=== PATIENT | female | born 1995 | race Caucasian/White ===

== ENCOUNTER 2022-10-17 11:47 | Emergency (ER) | payer OTHER, MEDICAID, SELFPAY ==
[2022-10-17 11:50] VITALS: BP 127/67; PULSE 67; RESP 15; TEMP 36.4; O2SAT 98; BMI 29.0
[2022-10-17] MEDS: PANTOPRAZOLE DR 20 MG TABLET PO (12:55)
[2022-10-17] MEDS: hydrOXYzine pamoate 25 MG CAPSULE PO (12:55)
--- NOTE | 2022-10-17 13:30 | ED_ITS ---
HPI - Female Genitourinary <SLY Eisenberg - Last Filed: 10/17/22 17:52> General Chief complaint: Abdominal Pain Stated complaint: cramping when eating/pregancy test Time Seen by Provider: 10/17/22 12:10 Source: patient Mode of arrival: Ambulatory History of Present Illness HPI Narrative: This is a 27-year-old female who presents to the emergency department with her family with multiple complaints, states that she is been going through a lot of stress, has epigastric pain, occasional pelvic pain, states that she had 2 menses last month both at the beginning of the month and the end of the month, denies vomiting or diarrhea. Denies upper respiratory symptoms. States that she is 7 months and got her menses 4 months ago and has had regular menses since then. Denies abnormal vaginal discharge at this time, states that she had a history of GERD in took Nexium in the past but had to stop taking it due to . She endorses a history of depression. She denies shortness of breath, fever, chills, denies vomiting but endorses nausea and epigastric pain from time to time. Does not use substances, denies changes to her bowels Related Data Home Medications Medication Instructions Recorded Confirmed Nexium PO 07/01/20 07/01/20 Previous Rx's Medication Instructions Recorded omeprazole 20 mg capsule,delayed 20 mg PO DAILY #30 caps 10/17/22 release polyethylene glycol 3350 17 17 g PO DAILY PRN constipation 10/17/22 gram/dose oral powder (Miralax) #238 grams Allergies Allergy/AdvReac Type Severity Reaction Status Date / Time acetaminophen [From Vicodin] Allergy Intermediate Vomiting Verified 10/17/22 11:50 hydrocodone [From Vicodin] Allergy Intermediate Vomiting Verified 10/17/22 11:50 Review of Systems <SLY Eisenberg - Last Filed: 10/17/22 17:52> Review of Systems ROS Unobtainable: All systems reviewed & are unremarkable except as noted in HPI and below Patient History <SLY Eisenberg - Last Filed: 10/17/22 17:52> Medical History (Updated 10/17/22 @ 13:56 by SLY Eisenberg) No active medical problems alcohol intake frequency: holidays/special occasions only Substance Use Type: marijuana Exam <SLY Eisenberg - Last Filed: 10/17/22 17:52> Narrative Exam Narrative: Reviewed vitals signs and nursing notes. General: Pleasant, sitting upright, in no acute distress, well groomed, afebrile HEENT: symmetrical facial expressions, moist mucous membranes, neck is supple CV: regular rate and rhythm, warm extremities Respiratory: normal work of breathing, without tachypnea or hypoxia. GI: abdomen soft, nondistended, no abdominal tenderness to palpation, she complains of GERD and reflux like symptoms, no pelvic tenderness to bilateral ovaries or suprapubic region. MSK: moves all extremities, no weakness, normal tone, ambulatory without deficit Skin: brisk capillary refill, without rash or wound Neuro: clear speech and normal cognition, A&O x3, GCS 15, no focal motor or sensation deficits Initial Vital Signs Initial Vital Signs: Vital Signs Temperature 97.5 F L 10/17/22 11:50 Pulse Rate 67 10/17/22 11:50 Respiratory Rate 15 10/17/22 11:50 Blood Pressure 127/67 10/17/22 11:50 Pulse Oximetry 98 10/17/22 11:50 Oxygen Delivery Method Room Air 10/17/22 11:50 <Higinio Leonard DO - Last Filed: 10/17/22 18:27> Initial Vital Signs Initial Vital Signs: Vital Signs Temperature 97.5 F L 10/17/22 11:50 Pulse Rate 67 10/17/22 11:50 Respiratory Rate 15 10/17/22 11:50 Blood Pressure 127/67 10/17/22 11:50 Pulse Oximetry 98 10/17/22 11:50 Oxygen Delivery Method Room Air 10/17/22 11:50 Course <SLY Eisenberg - Last Filed: 10/17/22 17:52> Orders Ordered: ED Orders 10/17/22 13:02 Consult to BATTERY TEST ENGINEER - Musical Instruments Assembler Stat 10/17/22 13:41 Urine Culture Stat Urine Microscopic Stat Discontinued Medications Hydroxyzine Pamoate (Hydroxyzine Pamoate 25 Mg Capsule) 25 mg PO NOW ONE Stop: 10/17/22 12:45 Last Admin: 10/17/22 12:55 Dose: 25 mg Documented By: JOSE LUIS Pantoprazole Sodium (Pantoprazole Dr 20 Mg Tablet) 20 mg PO NOW ONE Stop: 10/17/22 12:45 Last Admin: 10/17/22 12:55 Dose: 20 mg Documented By: JOSE LUIS Vital Signs Vital signs: Vital Signs - 8 hr 10/17/22 11:50 10/17/22 14:05 Temperature 97.5 F L Pulse Rate 67 64 Respiratory Rate 15 Blood Pressure 127/67 118/65 Pulse Oximetry 98 96 Oxygen Delivery Method Room Air Room Air <Higinio Leonard DO - Last Filed: 10/17/22 18:27> Orders Ordered: ED Orders 10/17/22 13:02 Consult to BATTERY TEST ENGINEER - Musical Instruments Assembler Stat 10/17/22 13:41 Urine Culture Stat Urine Microscopic Stat Discontinued Medications Hydroxyzine Pamoate (Hydroxyzine Pamoate 25 Mg Capsule) 25 mg PO NOW ONE Stop: 10/17/22 12:45 Last Admin: 10/17/22 12:55 Dose: 25 mg Documented By: JOSE LUIS Pantoprazole Sodium (Pantoprazole Dr 20 Mg Tablet) 20 mg PO NOW ONE Stop: 10/17/22 12:45 Last Admin: 10/17/22 12:55 Dose: 20 mg Documented By: JOSE LUIS Vital Signs Vital signs: Vital Signs - 8 hr 10/17/22 11:50 10/17/22 14:05 Temperature 97.5 F L Pulse Rate 67 64 Respiratory Rate 15 Blood Pressure 127/67 118/65 Pulse Oximetry 98 96 Oxygen Delivery Method Room Air Room Air MDM - Female Genitourinary <SLY Eisneberg - Last Filed: 10/17/22 17:52> Lab Data Labs: Lab Results 10/17/22 Range/Units 13:41 Urine RBC 0-1/hpf (0-5/HPF) Urine WBC 0-1/hpf (0-5/HPF) Ur Squamous Epith Cells 10-30 /hpf H (0-5/HPF) Urine Bacteria Occasional (0-1) (None) Ur Culture Indicated? Specimen cultured Point of Care Testing Test Results Negative Urine Dip Bedside Urine Glucose Negative Bedside Urine Bilirubin - Negative Bedside Urine Ketone - Negative Urine Specific [place] 1.025 Bedside Urine Occult Blood - Negative Bedside Urine pH 6.0 Bedside Urine Protein - Negative Bedside Urine Urobilinogen - Negative Bedside Urine Nitrite - Negative Bedside Urine Leukocytes - Negative Esterase MDM Narrative Medical decision making narrative: Chief Complaint: Epigastric pain, constipation Independent historian: Patient Multiple etiologies for patient's symptoms considered including, but not limited to: Ovarian cysts, constipation, acute viral illness, urinary tract infection, bacterial vaginosis, I have independently reviewed the patient's vital signs and nursing notes as well as prior records if available. Discussed obtaining a wet mount but she denies having any abnormal vaginal discharge, UA shows epithelial cells without RBCs, WBCs or bacteria Consultations: Social work met with the patient and her family to provide resources in the community for follow-up. She made a primary care appointment for the patient with Dr. Ivey 10/23. Patient endorses a history of depression, she would benefit from a mood medication as she is going through significant life stressors, is anxious and seems depressed. No suspicion for mild treatment of the children or for homicidal or suicidal intent. She appears to be doing the best that she can. Endorses a history of GERD and used to take Pepcid for this but stop taking due to . I started her on omeprazole 20 mg daily, her UA was contaminated with epithelial cells, I asked her to complete a wet mount at her primary care appointment if she is able. She is afebrile, tolerating p.o., has not had vomiting and is feeling much better at this point. She was given resource information for follow-up and crisis triage. Social considerations that may affect disposition: none Questions are addressed and there is agreement with the plan and for follow-up. I consulted with the ED attending physician Dr. Leonard as needed for higher level of care considerations and they were available for discussion and recommendations regarding plan of care and diagnostic testing. Patient is appropriate for outpatient management. <Higinio Leonard, DO - Last Filed: 10/17/22 18:27> Lab Data Labs: Lab Results 10/17/22 Range/Units 13:41 Urine RBC 0-1/hpf (0-5/HPF) Urine WBC 0-1/hpf (0-5/HPF) Ur Squamous Epith Cells 10-30 /hpf H (0-5/HPF) Urine Bacteria Occasional (0-1) (None) Ur Culture Indicated? Specimen cultured Point of Care Testing Test Results Negative Urine Dip Bedside Urine Glucose Negative Bedside Urine Bilirubin - Negative Bedside Urine Ketone - Negative Urine Specific [place] 1.025 Bedside Urine Occult Blood - Negative Bedside Urine pH 6.0 Bedside Urine Protein - Negative Bedside Urine Urobilinogen - Negative Bedside Urine Nitrite - Negative Bedside Urine Leukocytes - Negative Esterase Discharge Plan Departure Patient Disposition: Home Clinical Impression: test negative, Epigastric abdominal pain Instructions: DI for Epigastric Pain Activity Restrictions/Additional Instructions: *You have been diagnosed with abdominal pain, likely GERD related, please take omeprazole daily for acid and try to keep your stool soft with MiraLax as needed. Please stay hydrated, come back to emergency department for new or worsening symptoms, please follow-up at your doctor's appointment, have them complete a wet mount why UA there, there was some vaginal discharge in the urine but the urine was cultured so we will call if it grows anything that needs treatment with antibiotics. I hope you have a great day and glad that you came in for evaluation. *PCP appt Dr. Ivey 10/23 @ 2:30pm [facility] *What to do: *Please continue to take your regular medications as directed. [x] New medication prescriptions sent to your pharmacy: [ [facility]] [ ] New medication written as a paper prescription [ ] No new medications given *Please call and schedule follow up with your primary care provider in 2-3 days, at least for an update. Let them know you were seen in the Emergency Department for the above problem. We will electronically transmit a record of today's note if your PCP or specialist is in our system. *If you do not have a primary care provider please contact [phone] to establish care with one of the [facility] primary care providers. *Return to the Emergency Department for worsening symptoms, inability to keep liquids down, fever greater than 101F, chills, or other concerning symptom. Prescriptions: New omeprazole 20 mg capsule,delayed release(DR/EC) 20 mg PO DAILY Qty: 30 0RF polyethylene glycol 3350 [Miralax] 17 gram/dose powder 17 g PO DAILY PRN (Reason: constipation) Qty: 238 0RF No Action Nexium PO Referrals: Jey Ivey MD [Physician] - Stand Alone Forms: Patient Portal/API <Higinio Leonard, DO - Last Filed: 10/17/22 18:27> Cosign ED Attending Cosignature Attestation: Dr Leonard Co-Sign Statement: I was available for consultation during this patient's emergency department visit. This chart is signed by myself for administrative purposes only. I did not have direct contact with this patient during this visit. They were seen independently by the APC.
[2022-10-17 14:05] VITALS: BP 118/65; PULSE 64; O2SAT 96
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
[2022-10-17 14:13] LABS: RBC Urine 0-1/HPF (0-5/HPF)
[2022-10-17 14:14] LABS: Bacteria Urine Occasional (0-1); Culture Indicated Urine Specimen Cultured; Squamous Epithelial Cell Urine 10-30 /HPF (0-5/HPF); WBC Urine 0-1/HPF (0-5/HPF)
== END 2022-10-17 14:27 | disposition home or self-care (01) ==
PROVIDERS: Emergency Provider Nurse Practitioner Critical Care Medicine
DX: R10.13 Epigastric pain (principal); Z32.02 Encounter for pregnancy test, result negative
CPT/HCPCS: 81003; 81015; 81025; 87086; 99283

== ENCOUNTER 2022-10-22 11:49 | Emergency (ER) | payer OTHER, MEDICAID, SELFPAY ==
[2022-10-22 11:55] VITALS: BP 106/57; PULSE 63; RESP 18; TEMP 36.9; O2SAT 100; BMI 30.4
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
[2022-10-22] MEDS: ACETAMINOPHEN 325 MG TABLET 975 MG PO (13:21)
[2022-10-22] MEDS: CYCLOBENZAPRINE 10 MG TABLET PO (13:22)
[2022-10-22 14:44] VITALS: BP 109/55; PULSE 65; RESP 16; O2SAT 99
--- NOTE | 2022-10-22 15:35 | ED.BACK ---
HPI - Back Pain/Injury <Gagan Colon PA-C - Last Filed: 10/22/22 19:53> General Chief Complaint: Back Pain/Injury Stated Complaint: says sciatica/pain traveling down lt leg Time Seen by Provider: 10/22/22 12:56 Source: patient History of Present Illness HPI Narrative: 27-year-old female with past medical history sciatica presents to the ED with 1 week of lower back pain, radiating down the left leg. Patient states that she did a lot of heavy lifting with her kids and if you other kids that she was taking care of over the last few days, wore her little in a front pack which stressed her back and exacerbated her back pain. Patient denies numbness, tingling, weakness, urinary difficulties, saddle paresthesias, urinary incontinence, stool incontinence. Patient also expresses intermittent dysuria, requesting a test. Related Data Previous Rx's Medication Instructions Recorded omeprazole 20 mg capsule,delayed 20 mg PO DAILY #30 caps 10/17/22 release polyethylene glycol 3350 17 17 g PO DAILY PRN constipation 10/17/22 gram/dose oral powder (Miralax) #238 grams cyclobenzaprine 10 mg tablet 10 mg PO TID PRN muscle spasm 7 10/22/22 days #21 tabs cyclobenzaprine 10 mg tablet 10 mg PO TID PRN muscle spasm #30 10/23/22 tabs Allergies Allergy/AdvReac Type Severity Reaction Status Date / Time hydrocodone [From Vicodin] Allergy Intermediate Vomiting Verified 10/23/22 15:12 ibuprofen AdvReac Intermediate Nausea Verified 10/23/22 15:12 Review of Systems <Gagan Colon PA-C - Last Filed: 10/22/22 19:53> Review of Systems ROS Unobtainable: All systems reviewed & are unremarkable except as noted in HPI and below Constitutional Constitutional: Denies chills, Denies fatigue, Denies fever(s), Denies frequent falls, Denies lethargy and Denies weakness Eyes Eyes: Denies change in vision, Denies eye discharge, Denies irritation and Denies loss of vision ENT Ears, Nose, Mouth, and Throat: Denies change in voice, Denies dizziness, Denies neck pain, Denies sore throat and Denies throat swelling Cardiovascular Cardiovascular: Denies chest pain, Denies irregular heart rhythm, Denies lightheadedness, Denies palpitations, Denies dyspnea, Denies dyspnea on exertion and Denies orthopnea Respiratory Respiratory: Denies cough, Denies dyspnea, Denies dyspnea on exertion and Denies wheezing Gastrointestinal Gastrointestinal: Denies abdominal pain, Denies change in bowel habits, Denies diarrhea, Denies nausea and Denies vomiting Genitourinary Genitourinary: Denies hematuria, Reports dysuria, Denies flank pain, Denies urinary incontinence and Denies urinary urgency Musculoskeletal Musculoskeletal: Reports back pain, Denies muscle weakness, Denies neck pain, Denies numbness, Reports radiating pain into limb and Denies tingling Integumentary/Breasts Skin/Breast: Denies pruritus, Denies erythema, Denies rash and Denies wounds Neurologic Neurologic: Denies behavioral changes, Denies confusion, Denies dizziness, Denies frequent falls, Denies loss of vision, Denies numbness, Denies tingling and Denies weakness Psychiatric Psychiatric: Denies anxiety, Denies behavioral changes, Denies confusion, Denies depression, Denies homicidal ideation and Denies suicidal ideation Endocrine Endocrine: Denies fatigue, Denies flushing and Denies palpitations Hematologic/Lymphatic Hematologic/Lymphatic: Denies easy bruising Allergic/Immunologic Allergic/Immunologic: Denies urticaria, Denies throat swelling and Denies wheezing Patient History <Gagan Colon PA-C - Last Filed: 10/22/22 19:53> Medical History (Updated 10/23/22 @ 16:02 by Jey Ivey MD) Anxiety Low back pain radiating to left leg No active medical problems Social History Smoking Status: Former smoker Smoking Status: Former smoker alcohol intake frequency: holidays/special occasions only Substance Use Type: marijuana Exam <Gagan Cooln PA-C - Last Filed: 10/22/22 19:53> Narrative Exam Narrative: Const General:?cooperative, healthy appearing and comfortable [facility] Head:?normal to inspection Ears:?hearing grossly normal bilaterally Nose:?external nose normal Face and sinus:?normal facial exam and sinuses nontender Mouth:?oral mucosae normal Throat:?posterior oropharynx normal Eyes General:?appearance normal, both eyes and all related structures Neck Neck:?normal visual inspection and no lymphadenopathy noted Resp Effort & Inspection:?normal respiratory effort Auscultation:?clear to auscultation bilaterally Cardio Rate:?regular rate Rhythm:?regular rhythm Musculoskeletal No midline tenderness to palpation. No paraspinal tenderness to palpation. Strength and sensation is intact. There is full range of motion. Patient is neurovascularly intact. Neuro General:?patient alert, patient awake and patient oriented x3 Initial Vital Signs Initial Vital Signs: Vital Signs Temperature 98.5 F 10/22/22 11:55 Pulse Rate 63 10/22/22 11:55 Respiratory Rate 18 10/22/22 11:55 Blood Pressure 106/57 L 10/22/22 11:55 Pulse Oximetry 100 10/22/22 11:55 Oxygen Delivery Method Room Air 10/22/22 11:55 <Mikael Rodríguez DO - Last Filed: 10/25/22 13:41> Initial Vital Signs Initial Vital Signs: Vital Signs Temperature 98.5 F 10/22/22 11:55 Pulse Rate 63 10/22/22 11:55 Respiratory Rate 18 10/22/22 11:55 Blood Pressure 106/57 L 10/22/22 11:55 Pulse Oximetry 100 10/22/22 11:55 Oxygen Delivery Method Room Air 10/22/22 11:55 Course <Gagan Colon PA-C - Last Filed: 10/22/22 19:53> Orders Ordered: Discontinued Medications Acetaminophen (Acetaminophen 325 Mg Tablet) 975 mg PO NOW ONE Stop: 10/22/22 13:16 Last Admin: 10/22/22 13:21 Dose: 975 mg Documented By: LANDY Cyclobenzaprine HCl (Cyclobenzaprine 10 Mg Tablet) 10 mg PO NOW ONE Stop: 10/22/22 13:16 Last Admin: 10/22/22 13:22 Dose: 10 mg Documented By: LANDY Proparacaine HCl (Proparacaine 0.5% Ophth Mable) 1 drops EYE-LEFT NOW ONE Stop: 10/22/22 13:05 Last Admin: 10/22/22 13:16 Dose: Not Given Documented By: LANDY Vital Signs Vital signs: Vital Signs - 8 hr 10/22/22 11:55 10/22/22 14:44 Temperature 98.5 F Pulse Rate 63 65 Respiratory Rate 18 16 Blood Pressure 106/57 L 109/55 L Pulse Oximetry 100 99 Oxygen Delivery Method Room Air Room Air <Mikael Rodríguez DO - Last Filed: 10/25/22 13:41> Orders Ordered: Discontinued Medications Acetaminophen (Acetaminophen 325 Mg Tablet) 975 mg PO NOW ONE Stop: 10/22/22 13:16 Last Admin: 10/22/22 13:21 Dose: 975 mg Documented By: LANDY Cyclobenzaprine HCl (Cyclobenzaprine 10 Mg Tablet) 10 mg PO NOW ONE Stop: 10/22/22 13:16 Last Admin: 10/22/22 13:22 Dose: 10 mg Documented By: LANDY Proparacaine HCl (Proparacaine 0.5% Ophth Mable) 1 drops EYE-LEFT NOW ONE Stop: 10/22/22 13:05 Last Admin: 10/22/22 13:16 Dose: Not Given Documented By: LANDY Vital Signs Vital signs: Vital Signs - 8 hr 10/22/22 11:55 10/22/22 14:44 Temperature 98.5 F Pulse Rate 63 65 Respiratory Rate 18 16 Blood Pressure 106/57 L 109/55 L Pulse Oximetry 100 99 Oxygen Delivery Method Room Air Room Air MDM - Back Pain/Injury <Gagan Colon PA-C - Last Filed: 10/22/22 19:53> Lab Data Labs: Point of Care Testing Test Results Negative Urine Dip Bedside Urine Glucose Negative Bedside Urine Bilirubin - Negative Bedside Urine Ketone - Negative Urine Specific [place] 1.025 Bedside Urine Occult Blood - Negative Bedside Urine pH 6.0 Bedside Urine Protein - Negative Bedside Urine Urobilinogen - Negative Bedside Urine Nitrite - Negative Bedside Urine Leukocytes - Negative Esterase MDM Narrative Medical decision making narrative: 27-year-old female with past medical history sciatica presents to the ED with 1 week of lower back pain, radiating down the left leg. Physical exam is reassuring, patient's symptoms consistent with musculoskeletal sprain/strain. Patient's symptoms improved with Tylenol and Flexeril. UA was negative for infection, negative for . Discussed findings with patient, discharge patient home on Flexeril. Recommend lidocaine patches and Tylenol in addition to the Flexeril. ED return precautions were discussed with patient. Patient verbalized understanding. Medical records reviewed: Yes <Mikael Rodríguez DO - Last Filed: 10/25/22 13:41> Lab Data Labs: Point of Care Testing Test Results Negative Urine Dip Bedside Urine Glucose Negative Bedside Urine Bilirubin - Negative Bedside Urine Ketone - Negative Urine Specific Moran 1.025 Bedside Urine Occult Blood - Negative Bedside Urine pH 6.0 Bedside Urine Protein - Negative Bedside Urine Urobilinogen - Negative Bedside Urine Nitrite - Negative Bedside Urine Leukocytes - Negative Esterase Discharge Plan Departure Patient Disposition: Home Clinical Impression: Lower back pain Instructions: DI for Back Pain With Sciatica Activity Restrictions/Additional Instructions: You were evaluated in the ED today for lower back pain with sciatica. Your urine was negative for and infections. Your back pain is likely due to your sciatica acting up due to all of the recent child lifting. Your symptoms improved with Flexeril and Tylenol in the ED today. You are being prescribed Flexeril to continue taking at home along with the Tylenol. You may also try the lidocaine patches which are sole under the name of Salonpas in the drug store. Please follow-up with your PCP tomorrow, since you already have a appointment scheduled for further evaluation of the back pain and possible referral to physical therapy. Return to the ED if you experience numbness, tingling, weakness, urinary difficulties. Prescriptions: New cyclobenzaprine 10 mg tablet 10 mg PO TID PRN (Reason: muscle spasm) 7 Days Qty: 21 0RF No Action cyclobenzaprine 10 mg tablet 10 mg PO TID PRN (Reason: muscle spasm) Qty: 30 1RF Rx Instructions: Watch for excessive sedation. This is refill to ED script if needed over time as expected omeprazole 20 mg capsule,delayed release(DR/EC) 20 mg PO DAILY Qty: 30 0RF polyethylene glycol 3350 [Miralax] 17 gram/dose powder 17 g PO DAILY PRN (Reason: constipation) Qty: 238 0RF Referrals: Jey Ivey MD [Primary Care Provider] - Stand Alone Forms: Patient Portal/API <Mikael Rodríguez DO - Last Filed: 10/25/22 13:41> Cosign ED Attending Steffany Attestation: I was immediately available in the department for consultation. Documentation has been reviewed. I agree with assessment and plan.
== END 2022-10-22 14:47 | disposition home or self-care (01) ==
PROVIDERS: Emergency Provider Student in an Organized Health Care Education/Training Program; PCP Pediatrics
DX: M54.50 Low back pain, unspecified (principal)
CPT/HCPCS: 81003; 81025; 99283

== ENCOUNTER 2022-11-11 14:45 | Emergency (ER) | payer OTHER, MEDICAID, SELFPAY ==
[2022-11-11 15:11] VITALS: BP 124/78; PULSE 75; RESP 12; TEMP 36.8; O2SAT 97; BMI 29.0
[2022-11-11] MEDS: MECLIZINE HCL 12.5 MG TABLET 25 MG PO (15:40)
[2022-11-11] MEDS: ONDANSETRON 4 MG ODT SL (15:40)
--- NOTE | 2022-11-11 15:48 | ED.ABDPAIN ---
HPI - Abdominal Pain <SLY Eisenberg - Last Filed: 11/11/22 17:19> General Chief Complaint: Abdominal Pain Stated Complaint: motion sickness, vertigo, fall yesterday Time Seen by Provider: 11/11/22 15:29 Source: patient Mode of arrival: Wheelchair History of Present Illness HPI narrative: This is a 27-year-old female who presents to the emergency department complaining of a fall yesterday in which she broke her glasses and now states that she is had dizziness and vertigo since this. She also presents emergency department complaining of suprapubic pain, pressure, urinary frequency and urgency. She also endorses some vaginal discharge that is abnormal. She denies any upper abdominal pain, denies any flank pain, low back pain. She denies any vision changes other than not being able to see very well because she does not have glasses. Endorses nausea with vomiting, denies diarrhea, denies upper respiratory symptoms to include sore throat, cough, congestion. She would like to talk to social work as she has concerns about housing with her small children. Related Data Previous Rx's Medication Instructions Recorded omeprazole 20 mg capsule,delayed 20 mg PO DAILY #30 caps 10/17/22 release polyethylene glycol 3350 17 17 g PO DAILY PRN constipation 10/17/22 gram/dose oral powder (Miralax) #238 grams cyclobenzaprine 10 mg tablet 10 mg PO TID PRN muscle spasm #30 10/23/22 tabs meclizine 25 mg tablet 25 mg PO BID PRN dizziness #14 tabs 11/11/22 ondansetron HCl 4 mg tablet 4 mg PO Q8H PRN nausea and 11/11/22 vomiting #10 tabs phenazopyridine 100 mg tablet 100 mg PO QPC PRN bladder pain #7 11/11/22 (Pyridium) tabs Allergies Allergy/AdvReac Type Severity Reaction Status Date / Time hydrocodone [From Vicodin] Allergy Intermediate Vomiting Verified 10/23/22 15:12 ibuprofen AdvReac Intermediate Nausea Verified 10/23/22 15:12 Review of Systems <SLY Eisenberg - Last Filed: 11/11/22 17:19> Review of Systems ROS Unobtainable: All systems reviewed & are unremarkable except as noted in HPI and below Patient History <SLY Eisenberg - Last Filed: 11/11/22 17:19> Medical History Anxiety Low back pain radiating to left leg No active medical problems Social History Smoking Status: Former smoker Smoking Status: Former smoker alcohol intake frequency: holidays/special occasions only Substance Use Type: marijuana Exam <SLY Eisenberg - Last Filed: 11/11/22 17:19> Narrative Exam Narrative: Reviewed vitals signs and nursing notes. General: Pleasant, sitting upright, in no acute distress, well groomed, afebrile HEENT: symmetrical facial expressions, moist mucous membranes, neck is supple CV: regular rate and rhythm, warm extremities Respiratory: normal work of breathing, without tachypnea or hypoxia. GI: abdomen soft, nondistended, without CVA tenderness bilaterally, suprapubic tenderness to palpation, mild tenderness over the left ovary MSK: moves all extremities, no weakness, normal tone, ambulatory without deficit Skin: brisk capillary refill, without rash or wound Neuro: clear speech and normal cognition, A&O x3, GCS 15, no focal motor or sensation deficits Initial Vital Signs Initial Vital Signs: Vital Signs Temperature 98.2 F 11/11/22 15:11 Pulse Rate 75 11/11/22 15:11 Respiratory Rate 12 11/11/22 15:11 Blood Pressure 124/78 11/11/22 15:11 Pulse Oximetry 97 11/11/22 15:11 Oxygen Delivery Method Room Air 11/11/22 15:11 <Mikael Rodríguez DO - Last Filed: 11/17/22 01:49> Initial Vital Signs Initial Vital Signs: Vital Signs Temperature 98.2 F 11/11/22 15:11 Pulse Rate 75 11/11/22 15:11 Respiratory Rate 12 11/11/22 15:11 Blood Pressure 124/78 11/11/22 15:11 Pulse Oximetry 97 11/11/22 15:11 Oxygen Delivery Method Room Air 11/11/22 15:11 Course <SLY Eisenberg - Last Filed: 11/11/22 17:19> Orders Ordered: Discontinued Medications Cephalexin HCl (Cephalexin 250 Mg Capsule) 500 mg PO NOW ONE Stop: 11/11/22 17:16 Last Admin: 11/11/22 17:24 Dose: 500 mg Documented By: ERNESTO Meclizine HCl (Meclizine Hcl 12.5 Mg Tablet) 25 mg PO NOW ONE Stop: 11/11/22 15:32 Last Admin: 11/11/22 15:40 Dose: 25 mg Documented By: ERNESTO Metronidazole (Metronidazole 500 Mg Tablet) 500 mg PO NOW ONE Stop: 11/11/22 16:53 Last Admin: 11/11/22 17:01 Dose: 500 mg Documented By: ERNESTO Ondansetron HCl (Ondansetron 4 Mg Odt) 4 mg SL NOW ONE Stop: 11/11/22 15:32 Last Admin: 11/11/22 15:40 Dose: 4 mg Documented By: ERNESTO Phenazopyridine HCl (Phenazopyridine 100 Mg Tablet) 100 mg PO NOW ONE Stop: 11/11/22 17:16 Last Admin: 11/11/22 17:29 Dose: Not Given Documented By: ERNESTO Vital Signs Vital signs: Vital Signs - 8 hr 11/11/22 15:11 Temperature 98.2 F Pulse Rate 75 Respiratory Rate 12 Blood Pressure 124/78 Pulse Oximetry 97 Oxygen Delivery Method Room Air <Mikael Rodríguez DO - Last Filed: 11/17/22 01:49> Orders Ordered: Discontinued Medications Cephalexin HCl (Cephalexin 250 Mg Capsule) 500 mg PO NOW ONE Stop: 11/11/22 17:16 Last Admin: 11/11/22 17:24 Dose: 500 mg Documented By: ERNESTO Meclizine HCl (Meclizine Hcl 12.5 Mg Tablet) 25 mg PO NOW ONE Stop: 11/11/22 15:32 Last Admin: 11/11/22 15:40 Dose: 25 mg Documented By: ERNESTO Metronidazole (Metronidazole 500 Mg Tablet) 500 mg PO NOW ONE Stop: 11/11/22 16:53 Last Admin: 11/11/22 17:01 Dose: 500 mg Documented By: ERNESTO Ondansetron HCl (Ondansetron 4 Mg Odt) 4 mg SL NOW ONE Stop: 11/11/22 15:32 Last Admin: 11/11/22 15:40 Dose: 4 mg Documented By: ERNESTO Phenazopyridine HCl (Phenazopyridine 100 Mg Tablet) 100 mg PO NOW ONE Stop: 11/11/22 17:16 Last Admin: 11/11/22 17:29 Dose: Not Given Documented By: ERNESTO Vital Signs Vital signs: Vital Signs - 8 hr 11/11/22 15:11 Temperature 98.2 F Pulse Rate 75 Respiratory Rate 12 Blood Pressure 124/78 Pulse Oximetry 97 Oxygen Delivery Method Room Air [facility] - Abdominal Pain <SOFIYA EisenbergP - Last Filed: 11/11/22 17:19> Lab Data Labs: Lab Results 11/11/22 Range/Units 16:17 Urine RBC 0-1/hpf (0-5/HPF) Urine WBC 1-5/hpf (0-5/HPF) Ur Squamous Epith Cells 5-10 /hpf H (0-5/HPF) Urine Bacteria Few (2-10) H (None) Ur Culture Indicated? Cult not indicated Point of care testing: Point of Care Testing Test Results Negative Urine Dip Bedside Urine Glucose Negative Bedside Urine Bilirubin - Negative Bedside Urine Ketone - Negative Urine Specific [place] 1.020 Bedside Urine Occult Blood - Negative Bedside Urine pH 6.0 Bedside Urine Protein - Negative Bedside Urine Urobilinogen - Negative Bedside Urine Nitrite - Negative Bedside Urine Leukocytes - Negative Esterase ECG Data Interpretation: EKG independently reviewed by myself at [1519] reveals normal sinus rhythm at [68] bpm with regular axis and intervals. No STEMI, ST segment changes, arrhythmia, or acute ischemic changes. MDM Narrative Medical decision making narrative: Chief Complaint: Suprapubic pressure, dizziness Primary historian: patient Multiple etiologies for patient's complaint considered including, but not limited to: Urinary tract infection, vaginitis, pyelonephritis, constipation, dehydration, I have independently reviewed the patient's vital signs and nursing notes as well as prior records if available. Course of care: Patient broke her glasses during her fall and complains of dizziness related to not being able to see because her vision is so bad. She has suprapubic tenderness to palpation, reports urinary urgency and some vaginal discharge. Patient's UA came back positive for 1-5 wbc's, 5-10 squamous epithelial cells with few bacteria, wet mount is negative for clue cells, WBCs present, will treat for UTI for 07/05/2009 bacteria, suprapubic tenderness to palpation, and feeling unwell today. Patient was given cephalexin, Pyridium for her symptoms with oral Toradol. She feels better, is p.o. tolerant, Zofran is helpful, she is given a prescription of Zofran as well for home. Fragment to follow up with primary care as needed and return to the emergency department for new or worsening symptoms. Her test was negative today. Social work referral was placed due to concern about home insecurity. Social considerations that may affect disposition: none Questions are addressed and there is agreement with the plan and for follow-up. I consulted with the ED attending physician Dr. Rodríguez as needed for higher level of care considerations and they were available for discussion and recommendations regarding plan of care and diagnostic testing. Patient is appropriate for outpatient management. <Mikael Rodríguez, DO - Last Filed: 11/17/22 01:49> Lab Data Labs: Lab Results 11/11/22 Range/Units 16:17 Urine RBC 0-1/hpf (0-5/HPF) Urine WBC 1-5/hpf (0-5/HPF) Ur Squamous Epith Cells 5-10 /hpf H (0-5/HPF) Urine Bacteria Few (2-10) H (None) Ur Culture Indicated? Cult not indicated Point of care testing: Point of Care Testing Test Results Negative Urine Dip Bedside Urine Glucose Negative Bedside Urine Bilirubin - Negative Bedside Urine Ketone - Negative Urine Specific [place] 1.020 Bedside Urine Occult Blood - Negative Bedside Urine pH 6.0 Bedside Urine Protein - Negative Bedside Urine Urobilinogen - Negative Bedside Urine Nitrite - Negative Bedside Urine Leukocytes - Negative Esterase Discharge Plan Departure Patient Disposition: Home Clinical Impression: test negative Urinary tract infection Qualifiers: Urinary tract infection type: acute cystitis Instructions: DI for Urinary Tract Infection (UTI) Activity Restrictions/Additional Instructions: *You have been diagnosed with a urinary tract infection which is likely responsible for a lot of your symptoms. I hope you start feeling better soon, giving you an antibiotic and Pyridium to help treat the pain of your bladder. Your test was negative, please stay hydrated follow-up primary care as needed, I placed a referral for social work for you, they may call you back tomorrow since they are not here today. Please use meclizine as needed for dizziness and follow-up with an broom handle dipper get glasses ordered SUN[place]. Use Zofran as needed for nausea vomiting, Pyridium every 8 hours as needed for bladder pain and please finish the antibiotic, 4 times a day for the next 5 days.. We wish you the best, please return for worsening symptoms, fever or vomiting.. *What to do: *Please continue to take your regular medications as directed. [ x] New medication prescriptions sent to your pharmacy: [facility]] [ ] New medication written as a paper prescription [ ] No new medications given *Please call and schedule follow up with your primary care provider in 2-3 days, at least for an update. Let them know you were seen in the Emergency Department for the above problem. We will electronically transmit a record of today's note if your PCP or specialist is in our system. *If you do not have a primary care provider please contact [phone] to establish care with one of the [facility] primary care providers. *Return to the Emergency Department for worsening symptoms, inability to keep liquids down, fever greater than 101F, chills, or other concerning symptom. Prescriptions: New phenazopyridine [Pyridium] 100 mg tablet 100 mg PO QPC PRN (Reason: bladder pain) Qty: 7 0RF ondansetron HCl 4 mg tablet 4 mg PO Q8H PRN (Reason: nausea and vomiting) Qty: 10 0RF meclizine 25 mg tablet 25 mg PO BID PRN (Reason: dizziness) Qty: 14 0RF No Action cyclobenzaprine 10 mg tablet 10 mg PO TID PRN (Reason: muscle spasm) Qty: 30 1RF Rx Instructions: Watch for excessive sedation. This is refill to ED script if needed over time as expected omeprazole 20 mg capsule,delayed release(DR/EC) 20 mg PO DAILY Qty: 30 0RF polyethylene glycol 3350 [Miralax] 17 gram/dose powder 17 g PO DAILY PRN (Reason: constipation) Qty: 238 0RF Referrals: Jey Ivey MD [Primary Care Provider] - Stand Alone Forms: Patient Portal/API <Mikael Rodríguez DO - Last Filed: 11/17/22 01:49> Cosign ED Attending Steffany Attestation: I was immediately available in the department for consultation. Documentation has been reviewed. I agree with assessment and plan.
[2022-11-11 16:47] LABS: Bacteria Urine Few (2-10); Culture Indicated Urine Cult Not Indicated; RBC Urine 0-1/HPF (0-5/HPF); Squamous Epithelial Cell Urine 5-10 /HPF (0-5/HPF); WBC Urine 1-5/HPF (0-5/HPF)
[2022-11-11] MEDS: metroNIDAZOLE 500 MG TABLET PO (17:01)
[2022-11-11] MEDS: cephALEXin 250 MG CAPSULE 500 MG PO (17:24)
[2022-11-11 17:30] VITALS: PULSE 70; RESP 18; O2SAT 100
--- NOTE | 2022-11-11 17:32 | PC.NURSE ---
Upon discharge out of department made statement i guess the social service liaison didn't want to see us This writter, address husbands concern. Informed them that we did not have a social service liaison on duty at this time. A facesheet was placed in FLAT FOLDING MACHINE OPERATOR box for follow up.
--- NOTE | 2022-11-12 13:28 | CM.SWNOTE ---
SERVICE DESK SPECIALIST follow up Note SERVICE DESK SPECIALIST calls phone number for patient which is also phone number for patient's fiance. Patient's fiance answers call and reports that patient is at work and discusses concerns with family in need of emergent housing. He states that all of the family shelters are full for the next few months. SERVICE DESK SPECIALIST encourages fiance to contact [facility] for emergent motel voucher. MERLY NySW
== END 2022-11-11 17:32 | disposition home or self-care (01) ==
PROVIDERS: Emergency Provider Nurse Practitioner Critical Care Medicine; PCP Pediatrics
DX: R42 Dizziness and giddiness (principal); N30.00 Acute cystitis without hematuria
CPT/HCPCS: 81003; 81015; 81025; 87210; 93005; 99283

== ENCOUNTER 2022-12-15 10:58 | Emergency (ER) | payer OTHER, MEDICAID, SELFPAY ==
[2022-12-15] VITALS (15 sets, daily range): BP systolic 105–127; BP diastolic 55–62; PULSE 60–78; RESP 15–27; TEMP 36.8; O2SAT 97–100; BMI 30.6
[2022-12-15] MEDS: ONDANSETRON 4 MG/2 ML INJ IV (11:25)
--- NOTE | 2022-12-15 11:33 | ED_ITS ---
HPI - Nausea/Vomiting/Diarrhea General Chief complaint: Nausea/Vomiting/Diarrhea Stated complaint: cough, n/v, period heavier then normal Time Seen by Provider: 12/15/22 11:33 Source: patient and family Mode of arrival: Ambulatory History of Present Illness HPI Narrative: This is a 27-year-old female with history of migraines, prior x2 who presents with complaint of vaginal bleeding that started in the last day or so, she noted large clots, going through a pad about an hour every other hour. She states she had her period about 3 weeks ago so was not expecting to have her menses for about another week. She is had a little bit of lower pelvic cramping. She denies any lightheadedness or passing out. She has had a headac he intermittently for the past month and states she is been getting migraine since she lost her glasses a month ago. She states today it is a little bit worse she does sometimes get nausea and vomiting with that and she is having some today. She denies any chest pain or shortness of breath. She is had some nausea and vomiting. She states she is been constipated she is not had any diarrhea. No dysuria urgency or frequency. She notes a little bit of whitish discharge with her vaginal bleeding. She is sexually active. Patient also notes that she is had some loss of taste she is had a lot of nasal congestion with green drainage from her nose and that she is coughing up green drainage. S he denies any pleuritic chest pain. Patient states she is supposed to be on Prilosec but ran out. She is had C-sections x2. States allergic to Vicodin. States ibuprofen can make her nauseated but she tolerates IV Toradol without issue. She denies tobacco, alcohol or illicit other than occasional CBD. Her prior care was at [facility] in [place]. Dr. Ivey is her PCP. Related Data Previous Rx's Medication Instructions Recorded omeprazole 20 mg capsule,delayed 20 mg PO DAILY #30 caps 10/17/22 release polyethylene glycol 3350 17 17 g PO DAILY PRN constipation 10/17/22 gram/dose oral powder (Miralax) #238 grams cyclobenzaprine 10 mg tablet 10 mg PO TID PRN muscle spasm #30 10/23/22 tabs meclizine 25 mg tablet 25 mg PO BID PRN dizziness #14 tabs 11/11/22 ondansetron HCl 4 mg tablet 4 mg PO Q8H PRN nausea and 11/11/22 vomiting #10 tabs phenazopyridine 100 mg tablet 100 mg PO QPC PRN bladder pain #7 11/11/22 (Pyridium) tabs ondansetron 4 mg disintegrating 4 mg PO QID PRN nausea and 12/15/22 tablet vomiting #10 tabs Allergies Allergy/AdvReac Type Severity Reaction Status Date / Time hydrocodone [From Vicodin] Allergy Intermediate Vomiting Verified 10/23/22 15:12 ibuprofen AdvReac Intermediate Nausea Verified 10/23/22 15:12 Review of Systems Review of Systems ROS Unobtainable: All systems reviewed & are unremarkable except as noted in HPI and below Patient History Medical History ADHD Anxiety Asthma Low back pain radiating to left leg No active medical problems Family History Grandmother Cancer Stroke Grandfather Cancer Diabetes mellitus Hypertension Social History Smoking Status: Former smoker Smoking Status: Former smoker alcohol intake frequency: holidays/special occasions only Substance Use Type: marijuana Exam Narrative Exam Narrative: GEN: well nourished, well appearing female, alert and oriented x 3, patient appears to be in mild distress. HEENT: Atraumatic, pupils are equal round reactive to light, extraocular movements are intact, positive for nasal congestion, TMs are clear with no fluid , there is no conjunctival pallor. Throat is clear without any exudates, erythema, tonsillar enlargement or uvular deviation HEART: Regular rate and rhythm without murmur, clicks, rubs. LUNGS:Lungs clear to auscultation, no wheezes, rales, crackles, chest moves symmetrically ABD:bowel sounds normal, soft, mild suprapubic tenderness, no guarding, rebound, rigidity, no masses noted, no hepatosplenomegaly :No CVA tenderness MSCL: Non-tender, no muscle atrophy, muscles strength 5/5 upper and lower extremities, full range of motion, normal gait NEURO:CN 2-12 intact, sensation normal. SKIN: No rash, erythema or other skin changes Initial Vital Signs Initial Vital Signs: Vital Signs Pulse Rate 61 12/15/22 11:03 Pulse Oximetry 97 12/15/22 11:03 Course Orders Ordered: ED Orders 12/15/22 11:30 CMP [Comprehensive Metabolic Panel] Stat Complete Blood Count AUTO DIFF Stat Lipase Stat 12/15/22 11:40 Covid-19 + FLU A/B + RSV - PCR Stat 12/15/22 12:39 Genital Culture Stat Wet Prep Tric BV Joellen Stat Discontinued Medications Sodium Chloride (Normal Saline 0.9%) 1,000 mls @ 1,000 mls/hr IV BOLUS ONE Stop: 12/15/22 12:52 Last Infusion: 12/15/22 13:26 Dose: 0 mls/hr Documented By: Admin: 12/15/22 12:05 Dose: 1,000 mls/hr Documented By: DUNCAN Ketorolac Tromethamine (Ketorolac 30 Mg/Ml Vial) 15 mg IV NOW ONE Stop: 12/15/22 11:54 Last Admin: 12/15/22 12:04 Dose: 15 mg Documented By: DUNCAN Ondansetron HCl (Ondansetron 4 Mg Odt) 4 mg SL NOW PRN PRN Reason: Nausea And Vomiting Ondansetron HCl (Ondansetron 4 Mg/2 Ml Inj) 4 mg IV NOW PRN PRN Reason: Nausea And Vomiting Last Admin: 12/15/22 11:25 Dose: 4 mg Documented By: DUNCAN Vital Signs Vital signs: Vital Signs - 8 hr 12/15/22 11:15 12/15/22 11:15 12/15/22 11:30 Pulse Rate 70 66 Respiratory Rate 20 23 Blood Pressure 110/60 Pulse Oximetry 98 99 12/15/22 11:44 12/15/22 11:44 12/15/22 11:45 Pulse Rate 68 Respiratory Rate 18 Blood Pressure 127/58 L 120/62 Pulse Oximetry 98 12/15/22 11:45 12/15/22 12:00 12/15/22 12:00 Pulse Rate 66 61 Respiratory Rate 15 22 Blood Pressure 106/55 L Pulse Oximetry 99 98 12/15/22 12:15 12/15/22 12:15 12/15/22 12:32 Pulse Rate 66 60 Respiratory Rate Blood Pressure 105/55 L Pulse Oximetry 99 12/15/22 13:00 12/15/22 13:29 12/15/22 13:29 Pulse Rate 76 69 Respiratory Rate 25 H 19 Blood Pressure 111/62 Pulse Oximetry 100 100 12/15/22 13:30 12/15/22 13:30 12/15/22 13:35 Pulse Rate 67 71 Respiratory Rate 27 H Blood Pressure 113/57 L Pulse Oximetry 100 98 12/15/22 13:40 Pulse Rate 78 Respiratory Rate Blood Pressure Pulse Oximetry 99 MDM - Nausea/Vomiting/Diarrhea Lab Data 12/15/22 11:30 12/15/22 11:30 Labs: Lab Results 12/15/22 12/15/22 12/15/22 Range/Units 11:30 11:30 11:40 WBC 8.0 (4.5-11.0) X10^3/uL RBC 4.04 (4.0-5.2) X10^6/uL Hgb 12.4 (12.0-16.0) g/dL Hct 35.8 L (36-46) % MCV 88.6 (80-100) fL MCH 30.6 (26-34) PG MCHC 34.5 (30-36) % RDW 13.1 (11.6-14.8) % Plt Count 215 (150-400) X10^3/uL Neut % (Auto) 59.1 (50-75) % Lymph % (Auto) 32.9 (25-40) % Walker % (Auto) 5.6 (3-14) % Eos % (Auto) 1.5 L (2-4) % Baso % (Auto) 0.9 (0-2) % Neut # (Auto) 4700 (0589-9078) /uL Lymph # (Auto) 2600 (1727-8086) /uL Walker # (Auto) 400 (0-900) /uL Eos # (Auto) 100 (0-450) /uL Baso # (Auto) 100 (0-100) /uL Sodium 141 (137-145) mmol/L Potassium 3.8 (3.4-5.1) mmol/L Chloride 105 (98-107) mmol/L Carbon Dioxide 29 (22-32) mmol/L BUN 17 (7-17) mg/dL Creatinine 0.73 (0.52-1.04) mg/dL Estimated GFR > 60 (>60) mL/min BUN/Creatinine Ratio 23.3 H (6-22) Glucose 91 (70-100) mg/dL Calcium 9.1 (8.4-10.2) mg/dL Total Bilirubin 0.5 (0.2-1.3) mg/dL AST 23 (14-36) IU/L ALT 16 (<35) IU/L Alkaline Phosphatase 81 (38-126) U/L Total Protein 7.3 (6.3-8.2) g/dL Albumin 4.1 (3.5-5.0) g/dL Globulin 3.2 (1.7-4.1) g/dL Albumin/Globulin Ratio 1.3 (1.0-2.8) Lipase 203 (23-300) U/L SARS-CoV-2 (PCR) Negative (Negative) Influenza A (RT-PCR) Flu a negative (NEGATIVE) Influenza B (RT-PCR) Flu b negative (NEGATIVE) RSV (PCR) Negative (Negative) Point of Care Testing Test Results Negative Urine Dip Bedside Urine Glucose Negative Bedside Urine Bilirubin - Negative Bedside Urine Ketone - Negative Urine Specific [place] 1.010 Bedside Urine Occult Blood +++ Bedside Urine pH 7.5 Bedside Urine Protein +/- 15 Bedside Urine Urobilinogen - Negative Bedside Urine Nitrite - Negative Bedside Urine Leukocytes - Negative Esterase MDM Narrative Medical decision making narrative: 27-year-old female with complaint of headaches for the past month she lost her glasses which he normally wears daily. No acute red flag symptoms from this perspective she has obvious nasal congestion, seems to have more upper respiratory symptoms respiratory panel was sent she is also started having some vaginal bleeding heavier than she typically would with a. And she is about week early. test is negative, point of care urine does show blood no other signs of infection. CBC, CMP lipase as she is had some nausea and vomiting but seems more correlated with her headache which she states is typical shows normal CBC, CMP lipase are negative. Patient has had some discharge so plan for genital and wet mount. Discussed pelvic exam patient is comfortable with doing self swab. Patient's appears to likely have upper respiratory infection, so COVID/influenza RSV is negative. Patient's labs are appropriate her vitals she is bradycardic no hypotension she is likely having some irregular vaginal bleeding but feels appropriate for discharge. Would do symptomatic treatment for upper respiratory infection, she is feeling much better after fluids Toradol and Zofran. No more vomiting patient has been able to eat department. Cell swab shows occasional WBC but no other changes, there is genital culture pending and would wait for these results. Discussed findings with patient she feels comfortable returning home, discussed return precautions. Encouraged her also obtain new glasses which will likely help with her headaches. Discharge Plan Departure Patient Disposition: Home Clinical Impression: Upper respiratory infection, Vaginal bleeding, Head ache Instructions: DI for Vaginal Bleeding Activity Restrictions/Additional Instructions: Follow-up if you continued to have abnormal vaginal bleeding or concerning changes. 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 Your genital culture is pending, if this shows signs of infection we will contact you to start treatment. This typically takes 48-72 hours to result. You do appear to have an upper respiratory infection today. You may take Tylenol up to a 1000 mg every 6 hours as needed for headaches or muscle aches. You can take Zofran 1 tablet every 6 hours as needed for nausea. Prescription printed. Please return for rapidly worsening symptoms, increasing chest pain, shortness of breath, severe headaches, persistent fevers, persistent vomiting, increasing vaginal bleeding, bleeding through more than a pad an hour, lightheadedness or passing out or other new or concerning changes. Prescriptions: New ondansetron 4 mg tablet,disintegrating 4 mg PO QID PRN (Reason: nausea and vomiting) Qty: 10 0RF No Action cyclobenzaprine 10 mg tablet 10 mg PO TID PRN (Reason: muscle spasm) Qty: 30 1RF Rx Instructions: Watch for excessive sedation. This is refill to ED script if needed over time as expected omeprazole 20 mg capsule,delayed release(DR/EC) 20 mg PO DAILY Qty: 30 0RF polyethylene glycol 3350 [Miralax] 17 gram/dose powder 17 g PO DAILY PRN (Reason: constipation) Qty: 238 0RF phenazopyridine [Pyridium] 100 mg tablet 100 mg PO QPC PRN (Reason: bladder pain) Qty: 7 0RF ondansetron HCl 4 mg tablet 4 mg PO Q8H PRN (Reason: nausea and vomiting) Qty: 10 0RF meclizine 25 mg tablet 25 mg PO BID PRN (Reason: dizziness) Qty: 14 0RF Referrals: Jey Ivey MD [Primary Care Provider] - Stand Alone Forms: Patient Portal/API, Work Release Note
[2022-12-15 11:44] LABS: Add Manual Diff / Slide Review NO; Basophils Absolute Auto 100 /uL (0-100); Basophils Percent Auto 0.9 % (0-2); Eosinophils Absolute Auto 100 /uL (0-450); Eosinophils Percent Auto 1.5 % (2-4); Hematocrit 35.8 % (36-46); Hemoglobin 12.4 g/dL (12.0-16.0); Lymphocytes Absolute Auto 2600 /uL (1100-4500); Lymphocytes Percent Auto 32.9 % (25-40); Mean Corpuscular HGB Conc 34.5 % (30-36); Mean Corpuscular Hemoglobin 30.6 PG (26-34); Mean Corpuscular Volume 88.6 fL (80-100); Monocytes Absolute Auto 400 /uL (0-900); Monocytes Percent Auto 5.6 % (3-14); Neutrophils Absolute Auto 4700 /uL (1500-7000); Neutrophils Percent Auto 59.1 % (50-75); Platelet Count 215 X10^3/uL (150-400); Red Blood Cell Count 4.04 X10^6/uL (4.0-5.2); Red Cell Distribution Width 13.1 % (11.6-14.8)
[2022-12-15 11:54] LABS: Alanine Aminotransferase 16 IU/L (<35); Albumin 4.1 g/dL (3.5-5.0); Albumin Globulin Ratio 1.3 (1.0-2.8); Alkaline Phosphatase 81 U/L (38-126); Aspartate Aminotransferase 23 IU/L (14-36); BUN Creatinine Ratio 23.3 (6-22); Bilirubin Total 0.5 mg/dL (0.2-1.3); Blood Urea Nitrogen 17 mg/dL (7-17); Calcium 9.1 mg/dL (8.4-10.2); Carbon Dioxide 29 mmol/L (22-32); Chloride 105 mmol/L (98-107); Estimated Glomerular Filt Rate > 60 mL/min (>60); Globulin 3.2 g/dL (1.7-4.1); Glucose 91 mg/dL (70-100); HEMOLYSIS < 15 (0-50); Lipase 203 U/L (23-300); Potassium 3.8 mmol/L (3.4-5.1); Sodium 141 mmol/L (137-145); Total Protein 7.3 g/dL (6.3-8.2)
[2022-12-15] MEDS: KETOROLAC 30 MG/ML VIAL 15 MG IV (12:04)
[2022-12-15] MEDS: SODIUM CHLORIDE 0.9% 1,000 ML 1000 ML IV (12:05)
[2022-12-15 12:28] LABS: COVID-19 CEPHEID 4-PLEX PCR Negative (Negative); Influenza A - CEPHEID Flu A NEGATIVE (NEGATIVE); Influenza B - CEPHEID Flu B NEGATIVE (NEGATIVE); Respiratory Syncytial Virus Negative (Negative)
== END 2022-12-15 13:55 | disposition home or self-care (01) ==
PROVIDERS: Emergency Provider Emergency Medicine; PCP Pediatrics
DX: J06.9 Acute upper respiratory infection, unspecified (principal); N93.9 Abnormal uterine and vaginal bleeding, unspecified; R10.2 Pelvic and perineal pain; R51.9 Headache, unspecified; Z20.822 Contact with and (suspected) exposure to COVID-19
CPT/HCPCS: 0241U; 36415; 80053; 81003; 81025; 83690; 85025; 87070; 87205; 87210; 96361; 96374; 96375; 99284; J1885; J2405

== ENCOUNTER → 2023-01-02 10:23 | Outpatient (CLI) | payer OTHER, MEDICAID, SELFPAY ==
--- NOTE | 2023-01-02 10:25 | DI.US.S_ITS ---
PROCEDURE: US PELVIC COMPLETE INDICATIONS: abnormal vaginal bleeding and RUQ pain TECHNIQUE: Real-time scanning was performed of the pelvic organs, with image documentation. Additional endovaginal scanning was necessary due to incomplete visualization of the adnexal and endometrial structures by transabdominal scanning. COMPARISON: None. FINDINGS: Uterus: Uterus is retroverted and normal in size at 6.8 x 3.9 x 5.7 cm. The myometrium is homogeneous. The endometrium measures 17 mm mm combined thickness. Endometrial hyperplasia. No endometrial masses are seen. Ovaries: The right ovary measures 4.5 x 2.9 x 4.2 cm, with a calculated ovarian volume of 29 cc. The left ovary measures 3.4 x 2.3 x 2.6 cm, with a calculated ovarian volume of 11 cc. The ovaries have a normal sonographic appearance. Greater than 12 follicles can be seen in the left ovary. Dominant follicle within the right ovary measuring 1.6 cm No adnexal masses are seen. Other: No pathologic free abdominal or pelvic fluid. IMPRESSION: The endometrium measures 17 mm. No endometrial masses are seen. Given history of abnormal vaginal bleeding, follow-up ultrasound or endometrial sampling may be of value if clinically indicated. The left ovary demonstrates 12 or more follicles. A finding which can be seen with polycystic ovarian syndrome. In the absence of ovulatory dysfunction or clinically/biochemically diagnosed hyperandrogenism, findings are non specific and do not indicate the presence of polycystic ovarian syndrome. We strive to produce accurate, complete, and clear reports of imaging services. To assist us in improving patient care, this report was composed using standard report templates and voice recognition software. Therefore, it may contain abnormal punctuation, insertions and/or omissions. Occasional wrong-word or sound-alike substitutions may occur. Though we review the report and make efforts to correct it, we do recommend that the report be read carefully in proper context to recognize any text inaccuracies. Dictated by: Bentley Adrian M.D. on 01/02/2023 at 12:32 Approved by: Bentley Adrian M.D. on 01/02/2023 at 12:38
--- NOTE | 2023-01-02 10:25 | DI.US.S_ITS ---
PROCEDURE: US ABDOMEN LIMITED INDICATIONS: abnormal vaginal bleeding and RUQ pain TECHNIQUE: Real-time focused scanning was performed of the abdomen, with image documentation. COMPARISON: None. FINDINGS: The liver is increased in echogenicity, consistent with fatty infiltration. The liver is mildly enlarged at 17.4 cm. Mobile gallstone measuring 1.2 cm within the gallbladder. No gallbladder wall thickening or pericholecystic fluid. The biliary tree is within normal limits. The common bile duct measures 5 mm. The visualized portions of the pancreas are within normal limits. IMPRESSION: Increased hepatic echogenicity noted possibly related to hepatic steatosis but other sources of hepatocellular disease or hepatic cirrhosis cannot be excluded. Recommend clinical correlation. Mild hepatomegaly. Cholelithiasis without evidence of acute cholecystitis. Dictated by: Bentley Adrian M.D. on 01/02/2023 at 12:30 Approved by: Bentley Adrian M.D. on 01/02/2023 at 12:32
== END ==
PROVIDERS: PCP Pediatrics; Referring Provider Family Medicine; Visit Provider Family Medicine
DX: O90.89 Other complications of the puerperium, not elsewhere classified (principal); N93.9 Abnormal uterine and vaginal bleeding, unspecified; K80.20 Calculus of gallbladder without cholecystitis without obstruction; R16.0 Hepatomegaly, not elsewhere classified; R10.11 Right upper quadrant pain
CPT/HCPCS: 76705; 76830; 76856; 93975